=== PATIENT | female | born 1960 | race Caucasian/White ===

== ENCOUNTER → 2016-09-26 | Outpatient (CLI) | payer OTHER ==
[~2016-09-26] MED LIST: ALBU25PO2 MC; ALPR0.5T PO; ASPI-482 PO; BISA-42 PO; CALC300T5 PO; FLUO20CA16 PO; FLUT16SP2 NS; MULT-658 PO; OMEG300C PO; VITA0.4T8 PO
--- NOTE | 2016-09-26 16:53 | KCIC ---
MR of the right shoulder HISTORY: Right shoulder pain chronically. Decreased range of motion. Repetitive work. Falls. No specific injury. TECHNIQUE: Routine multiplanar sequences are obtained. FINDINGS: Acromioclavicular joint is degenerative, with small undersurface osteophytes. Complete full thickness tear of the supraspinatus tendon with 3 cm retraction. Mild muscle volume loss and fatty infiltration. Tendinosis and partial tearing through the infraspinatus tendon. High-grade partial subscapularis tendon tear. Mild fluid in the subdeltoid bursa. Blunting of the superior and posterior labrum. No advanced primary osteoarthritis. Attenuation and partial tearing of the biceps tendon centered at the bicipital groove entrance. There is slight medial subluxation of the tendon which is perched and flattened over the lateral aspect of the lesser tuberosity. No bone lesion or acute fracture. Small glenohumeral joint effusion. IMPRESSION: 1. Complete full-thickness retracted tear of the supraspinatus tendon. High-grade partial subscapularis tendon tear. 2. Posterosuperior labral degeneration or chronic tearing. 3. Partial biceps tendon tearing with slight medial subluxation. Electronically signed by: Bigg Schwarz MD (09/26/2016 4:50 PM)
== END | disposition home or self-care (01) ==
LOC: KCIC MRI 16:00
PROVIDERS: ATTEND Orthopaedic Surgery
DX: S46.012A Strain of muscle(s) and tendon(s) of the rotator cuff of left shoulder, initial encounter (principal); M25.411 Effusion, right shoulder; X58.XXXA Exposure to other specified factors, initial encounter; Y93.89 Activity, other specified; Y92.89 Other specified places as the place of occurrence of the external cause; Y99.8 Other external cause status
CPT/HCPCS: 73221